=== PATIENT | female | born 1945 | race Caucasian/White ===

== ENCOUNTER 2021-11-08 14:09 | Emergency (ER) | payer MEDICARE, OTHER ==
[~2021-11-08 14:09] MED LIST: ALAWAY10 ML EYEBOTH; AMBIEN5 MG PO; BACLOFEN 10MG T10 MG PO; DESYREL50 MG PO; HYDROCHLOROTHIAZIDE PO; MAGICMW SSP; MELATONIN5 M2 PO; MICON-GUARD 2% TOP; PANTOPRAZOLE SO40 MG PO; POTASSIUM CHLO20 ME2 PO; PREDNISONE 20MG20 MG PO; SILVASORB44.4 ML TOP; SYNTHROID25 MCG PO; TOPROL XL25 MG PO; TRIAMTERENE PO; TYLENOL500 MG PO
[2021-11-08 14:57] LABS: BASOPHIL 0.3 % (0-2); EOSINOPHIL 0.2 % (0-7); HCT 35.4 % (37.0-47.0); HGB 12.1 g/dl (12.5-16.0); LYMPHOCYTE 4.6 % (15-48); MCH 31.5 pg (25.0-31.0); MCHC 34.2 g/dL (32.0-36.0); MCV 92.2 fL (78.0-100.0); MONOCYTE 10.5 % (0-12); MPV 9.1 fL (6.0-9.5); NEUTROPHIL 83.9 % (41-80); NRBC 0; PLT 287 K/uL (150-400); RBC 3.84 M/uL (4.20-5.40); RDW 13.6 % (11.5-14.0); WBC 11.5 K/uL (4.0-10.5)
[2021-11-08 15:10] LABS: BILIRUBIN NEGATIVE (NEGATIVE); BLOOD NEGATIVE Ery/uL (NEGATIVE); CLARITY CLEAR (CLEAR); COLOR YELLOW (YELLOW); GLUCOSE (U) NORMAL (NORMAL); LEUKOCYTES NEGATIVE Leu/uL (NEGATIVE); NITRITE NEGATIVE (NEGATIVE); PROTEIN NEGATIVE (NEGATIVE); UROBILINOGEN 0.2 mg/dL (0.2-1.0); pH 5.5 (5.0-9.0)
[2021-11-08 15:18] LABS: BUN/CREAT RATIO (CALC) 29.7 RATIO; CREATININE 1.18 mg/dL (0.51-0.95); POTASSIUM 3.8 mmol/L (3.5-5.1)
== END 2021-11-08 18:30 | disposition home or self-care (01) ==
LOC: FER 14:09
PROVIDERS: Internal Medicine
DX: S42.141A Displaced fracture of glenoid cavity of scapula, right shoulder, initial encounter for closed fracture (principal); S42.292A Other displaced fracture of upper end of left humerus, initial encounter for closed fracture; S42.252A Displaced fracture of greater tuberosity of left humerus, initial encounter for closed fracture; S52.121A Displaced fracture of head of right radius, initial encounter for closed fracture; I10 Essential (primary) hypertension; R07.89 Other chest pain; Z88.0 Allergy status to penicillin; W19.XXXA Unspecified fall, initial encounter
CPT/HCPCS: 36415; 71250; 73030; 73080; 80048; 81003; 82550; 85025; J0696; J1170